=== PATIENT | female | born 1950 | race Caucasian/White ===

== ENCOUNTER 2022-04-09 17:11 | Emergency (ER) | payer BC ==
--- NOTE | 2022-04-09 17:51 | NUR ---
CALLED PT IN [place], NO RESPONSE
--- NOTE | 2022-04-09 19:01 | NUR ---
Patient left without being seen by ER Physician
== END 2022-04-09 19:02 | disposition left against medical advice (07) ==
LOC: ER 17:25
DX: Z53.21 Procedure and treatment not carried out due to patient leaving prior to being seen by health care provider (principal)

== ENCOUNTER 2022-04-10 10:43 | Emergency (ER) | payer MEDICARE, BC ==
[~2022-04-10] VITALS: Ht 157.5 cm; Wt 69.9 kg
--- NOTE | 2022-04-10 10:45 | NUR ---
BIB , "WOKE UP YESTERDAY WITH MY L KNEE PAINFUL AND SWELLING" 04/16 PS. WAS TOLD BY ORTHOPEDIST TO GO TO ER FOR ELIZABETH. TO ER BED 7, HOOKED TO MONITOR, CHANGED TO [facility], WARM BLANKET PROVIDED. AWAITING MD MIRZA.
--- NOTE | 2022-04-10 10:56 | NUR ---
SEEN AND EXAMINED BY .
--- NOTE | 2022-04-10 11:05 | NUR ---
[employer] ELECTRICIAN AT BEDSIDE FOR XRAY.
--- NOTE | 2022-04-10 11:54 | NUR ---
ELIZABETH DONE AT BEDSIDE.
--- NOTE | 2022-04-10 12:29 | NUR ---
patience wrap applied to affected knee
--- NOTE | 2022-04-10 12:29 | NUR ---
Patient discharged to home in stable condition. Written and verbal after care instructions given. Patient verbalizes understanding of instruction.
[2022-04-10 12:30] VITALS: BP 124/82
== END 2022-04-10 12:31 | disposition home or self-care (01) ==
LOC: ER 10:43
DX: M25.562 Pain in left knee (principal); M25.462 Effusion, left knee; J45.909 Unspecified asthma, uncomplicated; M19.90 Unspecified osteoarthritis, unspecified site; F41.9 Anxiety disorder, unspecified; Z87.19 Personal history of other diseases of the digestive system; Z90.710 Acquired absence of both cervix and uterus
CPT/HCPCS: 73564-TC; 93971-TC

== ENCOUNTER 2025-10-02 15:00 | Emergency (ER) | payer MEDICARE, BC ==
[~2025-10-02] VITALS: Ht 157.5 cm; Wt 81.6 kg
[2025-10-02] MEDS ORDERED: ACETAMINOPHEN ES 500 MG TABLET ONE (15:42)
[2025-10-02] MEDS: ACETAMINOPHEN ES 500 MG TABLET PO ONE (15:50)
[2025-10-02] MEDS ORDERED: PROPOFOL 20 ML IV ONE (16:16)
[2025-10-02 16:25] VITALS: TEMP 98.2
[2025-10-02] MEDS: PROPOFOL 200 MG/20 ML VIAL IV ONE (16:30)
[2025-10-02] MEDS: KETAMINE HCL(200MG/20ML) 10 MG/ML VIAL IV ONE (16:30)
[2025-10-02] MEDS: KETAMINE HCL(200MG/20ML) 10 MG/ML VIAL IM ONE (16:47)
[2025-10-02] MEDS: PROPOFOL 1,000 MG/100 ML BOTTLE IV ONE (16:56)
[2025-10-02] MEDS ORDERED: ACET-2030 PO (17:21)
[2025-10-02 17:35] VITALS: BP 144/75; O2SAT 99
== END 2025-10-02 17:43 | disposition home or self-care (01) ==
LOC: ER 15:03
DX: S52.121A Displaced fracture of head of right radius, initial encounter for closed fracture (principal); J45.909 Unspecified asthma, uncomplicated; Z87.19 Personal history of other diseases of the digestive system; Z90.711 Acquired absence of uterus with remaining cervical stump; W01.0XXA Fall on same level from slipping, tripping and stumbling without subsequent striking against object, initial encounter; Y93.89 Activity, other specified; Y92.89 Other specified places as the place of occurrence of the external cause; Y99.9 Unspecified external cause status
CPT/HCPCS: 99285; 24600; 99152; 73080 ×2; 73090; 73060; 94799; J2704; J7030; G0500